=== PATIENT | female | born 1950 | race Caucasian/White ===

== ENCOUNTER 2020-03-05 01:34 | Outpatient (CLI) | payer MEDICARE, OTHER, SELFPAY ==
[2020-03-05 19:05] LABS: SARS-CoV-2 RNA PCR Negative
== END 2020-03-05 01:35 | disposition home or self-care (01) ==
LOC: ANHCOVIDDT 01:35
PROVIDERS: PCP Family Medicine; Visit Provider Internal Medicine Gastroenterology
DX: Z01.812 Encounter for preprocedural laboratory examination (principal); Z20.828 Contact with and (suspected) exposure to other viral communicable diseases
CPT/HCPCS: 87635; C9803; U0003

== ENCOUNTER 2020-03-07 00:40 | Day surgery (SDC) | payer MEDICARE, OTHER, SELFPAY ==
[2020-02-28 15:15] VITALS: BMI 28.9
--- NOTE | 2020-03-06 08:01 | WPDANESEPPF ---
Anes - Initial Pre Proc Eval Procedure: Operation Date: 03/07/20 08:30 Proposed Procedures p Screening Colonoscopy - Lonnie Bianchi MD Date/Time: 03/06/20 08:01 Surgeon: Lonnie Bianchi MD Pre Op Diagnosis: hx of polyps Patient Data Age: 70 Gender: F Height: 1.52 m Weight: 67.2 kg Allergies Allergy/AdvReac Type Severity Reaction Status Date / Time No Known Allergies Allergy Verified 03/07/20 07:37 Home Medications Medication Instructions Recorded Confirmed Type blood sugar diagnostic #100 each 10/09/19 10/09/19 Rx blood-glucose meter #1 each 10/09/19 10/09/19 Rx lancets 32 gauge #100 each 10/09/19 10/09/19 Rx multivit-iron 18 mg-folic acid 400 tablet PO DAILY 10/09/19 10/09/19 History mcg-calcium 500 mg-minerals tablet sertraline 50 mg tablet 50 mg PO DAILY #90 tablet 10/09/19 03/07/20 Rx metformin 500 mg tablet 1,000 mg PO BID #360 tablet 01/09/20 02/28/20 Rx glimepiride 1 mg tablet 1 mg PO QAM #90 tablet 02/13/20 Rx Patient hx anesthesia problems: none Family hx anesthesia problems: none PMFSH Past Medical History Medical History (Updated 03/06/20 @ 08:02 by Willi Begum DO) Brain aneurysm history of repair Diabetes type 2, controlled GERD (gastroesophageal reflux disease) Migraine Thalassemia Surgical History Surgical History (Updated 03/06/20 @ 08:02 by Willi Begum DO) History of hysterectomy Family History Family History (Updated 05/24/18 @ 14:17 by DOCTOR UNKNOWN) Mother Family history of lymphoma Family history of malignant neoplasm Father Carcinoma of colon Other Diabetes mellitus Hypertension Social History Social History Smoking status: Never smoker Second hand tobacco smoke exposure: No Alcohol intake: never Alcohol use details: rare Substance use: never Substance use type: does not use Living arrangements: with family Gender identity (if verbalized by the patient): Female Spiritual care concerns: No Anes - Eval Final PreProcedure Day of Procedure 03/06/20 08:01 Patient weight: overweight Heart: regular rate and rhythm Lungs: clear to auscultation and normal air movement Airway: Mallampati scale class III Neurological: alert and oriented Last oral intake: >/= 8 hours ASA classification: III Emergent: no Anesthetic plan: proceed Anesthesia type and monitoring: general GIVS and standard monitoring Informed Consent: The patient's anesthetic plan and its attendant risks and benefits were discussed with the patient/family/POA. Questions were solicited and answers provided to the satisfaction of the patient/family/POA.
[2020-03-07 07:38] VITALS: BP 149/81; PULSE 117; RESP 20; TEMP 37.1; O2SAT 97
--- NOTE | 2020-03-07 07:52 | PM.HPGS ---
History of Present Illness History of Present Illness Consent: Risks, benefits, and alternatives have been discussed and questions answered. Patient agrees to proceed with procedure. Chief complaint: hx of polyps Narrative: Rosa Orantes is a 70 year old White female who underwent partial transverse colon resection for a large dysplastic polyp in 2016. Patient a small adenoma removed in 2017 who returns now for follow-up exam. COUNTS INCLUDE 234 BEDS AT THE [facility] Past Medical History Medical History Brain aneurysm history of repair Diabetes type 2, controlled GERD (gastroesophageal reflux disease) Migraine Thalassemia Surgical History Surgical History History of hysterectomy Family History Family History (Updated 05/24/18 @ 14:17 by DOCTOR UNKNOWN) Mother Family history of lymphoma Family history of malignant neoplasm Father Carcinoma of colon Other Diabetes mellitus Hypertension Social History Social History Smoking status: Never smoker Second hand tobacco smoke exposure: No Alcohol intake: never Alcohol use details: rare Substance use: never Substance use type: does not use Living arrangements: with family Gender identity (if verbalized by the patient): Female Spiritual care concerns: No Meds Home Medications and Allergies Home Medications Medication Instructions Recorded Confirmed Type blood sugar diagnostic #100 each 10/09/19 10/09/19 Rx blood-glucose meter #1 each 10/09/19 10/09/19 Rx lancets 32 gauge #100 each 10/09/19 10/09/19 Rx multivit-iron 18 mg-folic acid 400 tablet PO DAILY 10/09/19 10/09/19 History mcg-calcium 500 mg-minerals tablet sertraline 50 mg tablet 50 mg PO DAILY #90 tablet 10/09/19 03/07/20 Rx metformin 500 mg tablet 1,000 mg PO BID #360 tablet 01/09/20 02/28/20 Rx glimepiride 1 mg tablet 1 mg PO QAM #90 tablet 02/13/20 Rx Allergies Allergy/AdvReac Type Severity Reaction Status Date / Time No Known Allergies Allergy Verified 03/07/20 07:37 Vital Signs Vital Signs - 24 hr 03/07/20 07:38 Temperature 37.1 C Pulse Rate 117 H Respiratory Rate 20 Blood Pressure 149/81 H Pulse Oximetry 97 Exam Const: Orientation/consciousness: patient oriented x3 Resp: Auscultation: clear to auscultation bilaterally Cardio: Rate: regular rate Rhythm: regular rhythm Heart sounds: no murmurs GI: GI Palp: Yes Soft to palpation, No Tenderness to palpation present (GI), Yes No hepatosplenomegaly present and No Palpable mass present Auscultation: normal bowel sounds Neuro: General: patient oriented x3 and no focal motor deficits Extrem: General: no pedal edema Assessment and Plan Additional Plan Screening colonoscopy secondary history of colonic polyps
[2020-03-07] MEDS: LACTATED RINGERS 1,000 ML 150 ML IV CONT (08:03)
[2020-03-07 08:06] LABS: Glucose Point of Care 128 (65-105)
[2020-03-07 08:55] VITALS: BP 111/59; PULSE 93; RESP 24; O2SAT 95
[2020-03-07 09:05] VITALS: BP 114/66; PULSE 91; RESP 23; O2SAT 95
[2020-03-07 09:15] VITALS: BP 118/66; PULSE 92; RESP 20; O2SAT 95
== END 2020-03-07 09:40 | disposition home or self-care (01) ==
PROVIDERS: PCP Family Medicine; Visit Provider Internal Medicine Gastroenterology
PROC: 0DJD8ZZ Inspection of Lower Intestinal Tract, Via Natural or Artificial Opening Endoscopic (ICD-10-PCS; CPT 45378; principal; 2020-03-07 08:30)
DX: Z12.11 Encounter for screening for malignant neoplasm of colon (principal); K63.5 Polyp of colon; Z98.0 Intestinal bypass and anastomosis status; Z90.49 Acquired absence of other specified parts of digestive tract; E11.9 Type 2 diabetes mellitus without complications; K21.9 Gastro-esophageal reflux disease without esophagitis; Z79.84 Long term (current) use of oral hypoglycemic drugs
CPT/HCPCS: 45380; 88305; J2704; J7120

== ENCOUNTER 2022-01-13 09:57 | Outpatient (CLI) | payer MEDICARE, OTHER, SELFPAY ==
--- NOTE | ~2022-01-13 | DEXA_ITS ---
Bone Density Report Name: DILMA HERNANDEZ Age: 71 Sex: Female Ethnicity: White Date of : 1950 Indication: postmenopausal; screening for osteoporosis; height loss; hysterectomy; Referring Provider: DILCIA TREVIÑO Study: Bone densitometry was performed. Exam Date: January 13, 2022 Accession number: [id number] Bone Density: Region BMD T-score Z-score Classification AP Spine(L1-L4) 0.938 -1.0 1.1 Normal Femoral Neck (Left) 0.557 -2.6 -0.8 Osteoporosis Total Hip (Left) 0.786 -1.3 0.2 Osteopenia Femoral Neck (Right) 0.627 -2.0 -0.2 Osteopenia Total Hip (Right) 0.839 -0.8 0.7 Normal Total Hip Mean 0.813 -1.1 0.5 Osteopenia World Health Organization criteria for BMD impression classify patients as: Normal (T-score at or above -1.0), Osteopenia (T-score between -1.0 and -2.5), or Osteoporosis (T-score at or below -2.5). 10-year Fracture Risk: FRAX not reported because: Some T-score for Spine Total or Hip Total or Femoral Neck at or below -2.5 Clinical Information Provided by Patient: Has used the following medications: Calcium Has the following medical conditions: Hysterectomy Patient maximum height was 61 No regular weight bearing exercise Drinks caffeinated beverages Onset of menses at age 14 Number of children 2 Impression: The patient has osteoporosis, based on the Left Femoral Neck T-score. Discussion: INCREASED RISK OF FRACTURE. BONE DENSITY IS UNDESIRABLY LOW AT ONE OR MORE SKELETAL SITES, CONSISTENT WITH POSTMENOPAUSAL OSTEOPOROSIS. This patient's lowest T-score meets the World Health Organization's (WHO) criteria for osteoporosis at one or more sites (T-score -2.5 or below). In untreated patients, the risk of osteoporotic fracture increases approximately two-fold for each 1.0 SD decrease in T-score. Low bone density is not the only risk factor for fracture; also consider factors such as patient's age, frailty or poor health, risk of falling, risk of injury, previous osteoporotic fracture, family history of osteoporosis, cigarette smoking, low body weight, etc. Not everyone with low bone mineral density has osteoporosis; osteomalacia and other metabolic bone disorders should also be considered. Patients who have osteoporosis should be evaluated for specific diseases and conditions (secondary causes) that may cause or contribute to bone loss. The [place] [employer] Endocrinologists (AACE) and National Osteoporosis Foundation (NOF) recommend pharmacologic intervention for all postmenopausal women whose T-score is in this range. The patient should follow a healthful lifestyle (good nutrition with adequate calcium and vitamin D, and appropriate weight-bearing exercise). Follow-Up: Consider a repeat BMD and Vertebral Fracture Assessment (VFA) exam in 2 years or sooner i
== END 2022-01-13 09:58 | disposition home or self-care (01) ==
LOC: ANHIMG 09:59
PROVIDERS: PCP Family Medicine; Visit Provider Physician Assistant
DX: Z78.0 Asymptomatic menopausal state (principal); M81.0 Age-related osteoporosis without current pathological fracture; M85.851 Other specified disorders of bone density and structure, right thigh
CPT/HCPCS: 77080

== ENCOUNTER 2022-10-14 12:52 | Outpatient (CLI) | payer MEDICARE, OTHER, SELFPAY ==
--- NOTE | ~2022-10-14 | XR_ITS ---
Clinical Indication: Chronic cough PA and lateral views of the chest: Comparison: 07/25/2011 Findings: There are probable small right pleural effusion. Left lung clear. Cardiomediastinal silhou ette is within normal limits. Bones and soft tissues are unremarkable. Impression: Probable small left pleural effusion and/or atelectasis. Reviewed, dictated and finalized at location . Impression: Probable small left pleural effusion and/or atelectasis.
== END 2022-10-14 12:53 | disposition home or self-care (01) ==
LOC: ANHIMG 12:57
PROVIDERS: PCP Family Medicine; Visit Provider Physician Assistant Medical
DX: R05.3 Chronic cough (principal)
CPT/HCPCS: 71046

== ENCOUNTER 2022-10-19 09:29 | Outpatient (CLI) | payer MEDICARE, OTHER, SELFPAY ==
--- NOTE | ~2022-10-19 | XR_ITS ---
EXAMINATION: XR chest 2V w RT decubitus INDICATION: Pleural effusion not elsewhere classified TECHNIQUE: PA, lateral, and right decubitus images of the chest are obtained. COMPARISON: 10/14/2022 FINDINGS: The lungs are free of acute opacities. There is chronic mild atelectasis of the right lung base. No pleural effusion or pneumothorax. The cardiomediastinal silhouette is normal. The visualized bones and soft tissues are unremarkable. Mild thoracic spondylosis is noted. IMPRESSION: 1. Chronic mild atelectasis of the right lung base. Reviewed, dictated and finalized at location A.
== END 2022-10-19 09:30 | disposition home or self-care (01) ==
LOC: ANHIMG 09:34
PROVIDERS: PCP Family Medicine; Visit Provider Physician Assistant Medical
DX: J90 Pleural effusion, not elsewhere classified (principal); J98.11 Atelectasis
CPT/HCPCS: 71047

== ENCOUNTER 2022-11-23 09:39 | Outpatient (CLI) | payer MEDICARE, OTHER, SELFPAY ==
--- NOTE | ~2022-11-23 | XR_ITS ---
Clinical Indication: Cough PA and lateral views of the chest: Comparison: 10/19/2022 Findings: There is stable minimal haziness at the right costophrenic angle region. Left lung clear. Cardiomediastinal silhouette is within normal limits. Bones and soft tissues are unremarkable. Impression: Stable haziness of the right costophrenic angle region. This probably represents chronic scarring or atelectasis. Reviewed, dictated and finalized at location . Impression: Stable haziness of the right costophrenic angle region. This probably represent s chronic scarring or atelectasis.
== END 2022-11-23 09:40 | disposition home or self-care (01) ==
PROVIDERS: PCP Family Medicine; Visit Provider Physician Assistant Medical
DX: R05.3 Chronic cough (principal); R91.8 Other nonspecific abnormal finding of lung field
CPT/HCPCS: 71046

== ENCOUNTER 2024-03-29 16:36 | Outpatient (CLI) | payer MEDICARE, OTHER, SELFPAY ==
[2024-03-29 18:33] LABS: Influenza A QL RT-PCR Negative (Negative); Influenza B QL RT-PCR Negative (Negative); RSV RNA, RT-PCR Negative (Negative); SARS-CoV-2 RNA PCR Negative (Negative)
== END 2024-03-29 16:37 | disposition home or self-care (01) ==
LOC: ANHLAB 16:39
PROVIDERS: PCP Family Medicine; Visit Provider Family Medicine
DX: J06.9 Acute upper respiratory infection, unspecified (principal); Z20.822 Contact with and (suspected) exposure to COVID-19
CPT/HCPCS: 87637

== ENCOUNTER 2024-07-24 12:48 | Emergency (ER) | payer MEDICARE, OTHER, SELFPAY ==
--- NOTE | ~2024-07-24 | XR_ITS ---
XR chest 2V Ordering provider: Carol Dahl APRN History: 74 years Female with . cough, wheezing X 3 DAYS . Comparison: November 23, 2022 FINDINGS: MEDIASTINUM: The cardiac silhouette is not enlarged. LUNGS: No infiltrates, effusions or pneumothorax. Blunting of the right costophrenic angle. OTHER: No free air under the diaphragm. Degenerative changes of the spine. IMPRESSION: No acute cardiopulmonary pathology. Reviewed, dictated and finalized at location A.
[2024-07-24 12:58] VITALS: BP 129/67; PULSE 100; RESP 20; TEMP 37; O2SAT 98
--- NOTE | 2024-07-24 13:04 | ED.URI ---
HPI - URI/Sore Throat General Chief Complaint: Upper Respiratory Infection Stated Complaint: cough,chest hurts,weak, winded Time Seen by Provider: 07/24/24 12:53 Source: patient Mode of arrival: ambulatory Limitations: no limitations History of Present Illness HPI Narrative: Patient is a 74-year-old female presents with 3 days deep, chest congestion and intermittent fever. Denies any sore throat, ear pain, chills, nausea vomiting, diarrhea. Has taken [id number] medicine with no relief Related Data Allergies Allergy/AdvReac Type Severity Reaction Status Date / Time No Known Allergies Allergy Verified 02/14/24 08:34 Review of Systems Review of Systems: All systems reviewed & are unremarkable except as noted in HPI and below Constitutional: Constitutional: Denies chills, Denies fatigue, Denies fever(s), Denies headache(s), Denies malaise and Denies weakness Eyes: Eyes: Denies blurry vision, Denies itchy eyes and Denies loss of vision ENT: Denies otalgia, Denies headache(s), Reports nasal congestion, Denies sinus pain and Denies sore throat Cardiovascular: Cardiovascular: Denies chest pain, Denies irregular heart rhythm and Denies dyspnea Respiratory: Respiratory: Reports cough and Denies dyspnea Gastrointestinal: Gastrointestinal: Denies abdominal pain, Denies diarrhea, Denies nausea and Denies vomiting Musculoskeletal: Musculoskeletal: Denies back pain, Denies myalgias and Denies arthralgias Integumentary/Breasts: Skin/Breast: Denies pruritus and Denies rash Neurologic: Denies headache(s), Denies loss of vision and Denies weakness Psychiatric: Psychiatric: Reports no additional psychiatric complaints Endocrine: Endocrine: Denies fatigue Allergic/Immunologic: Allergic/Immunologic: Denies itchy eyes PMFSH Past Medical History Medical History Diabetes type 2, controlled Thalassemia GERD (gastroesophageal reflux disease) Brain aneurysm history of repair Migraine Surgical History Surgical History History of hysterectomy Family History Family History Mother Family history of lymphoma Family history of malignant neoplasm Father Carcinoma of colon Other Diabetes mellitus Hypertension Social History Social History Smoking status: Never smoker Second hand tobacco smoke exposure: No Alcohol intake: never Alcohol use details: rare Substance use: never Substance use type: does not use Lack of Transportation: No Lack of Food: Never True Current Housing: I Have Housing Concerned About Future Housing: No Difficulty Paying Gas/Electric Bills: No Difficulty Paying for Meds: No Currently Unemployed: No Education: High School Diploma/GED Difficulty w/ Childcare or Family Care: No Living arrangements: with family Gender identity (if verbalized by the patient): Female Sexual Orientation (if Verbalized by the Patient): Straight or Heterosexual Spiritual care concerns: No Agree to blood products: Yes Comments At time of signature, agree with nursing past medical, surgical, social and family history. There is no relevant family history pertinent to the presenting complaint. Exam Const: General: cooperative, healthy appearing, comfortable, no acute distress and well nourished Nutritional Appearance: well nourished Orientation/consciousness: patient oriented x3 Limitations: no limitations HENMT: Head: normal to inspection, normocephalic and atraumatic Ears: hearing grossly normal bilaterally, external ears normal, TM's normal bilaterally, EAC's normal and no periauricular adenopathy Face/Nose/Sinus: Normal external nose present, Abnormal mucous membranes and turbinates present erythematous bilateral and diffuse, normal facial exam, sinuses nontender and face symmetric Face and sinus: normal facial exam, sinuses nontender and face symmetric Mouth: Yes Normal oral and palatal mucosa present, Yes lip normal, Yes tongue normal, Yes Normal salivary glands and ducts present, Yes oropharynx normal and Yes moist mucous membranes Teeth and gingiva: dentition normal Throat: posterior oropharynx normal, tonsils normal and uvula midline Eyes: General: appearance normal, both eyes and all related structures Alignment and Position: alignment normal and position normal Periorbital: periorbital findings normal Eyelids: eyelids normal Pupils: Equal, round and reactive pupils present Neck: Neck: normal visual inspection, full ROM, no lymphadenopathy and supple Chest: Chest palpation & inspection: normal inspection of the chest and normal palpation of entire chest wall Resp: Effort & Inspection: normal respiratory effort, able to speak in complete sentences and Actively coughing dry Auscultation: clear to auscultation bilaterally, no crackles, no rales, no rhonchi and no wheezes Cardio: Rate: regular rate Rhythm: regular rhythm Heart sounds: S1 normal heart sound present and S2 normal heart sound present GI: Inspection: normal to inspection Skin: General skin exam: normal color and no rashes or lesions noted Neuro: General: patient oriented x3 and moves all extremities Cranial nerves: Yes Equal, round and reactive pupils present Speech: normal speech Gait exam (Neuro): Normal gait present Extrem: General: normal to inspection, full ROM and no edema Psych: Appearance: grossly normal and well kempt Mental Status: mental status grossly normal Speech and movement: Normal speech and movement present Affect: normal affect Attitude: cooperative Thought process: Normal thought process present Course Course Emergency Course: Discharge instructions reviewed with patient, as well as provided in writing per nursing staff. The instructions also include specific and strict return/GO TO THE ER as well as f/u information. All questions have been answered, and the patient deny any further questions with discharge and discharge plan. Portions of this record may have been created with voice recognition software Level of Care: Express Care Visit Vital Signs Vital signs: Vital Signs Temperature 37.0 C 07/24/24 12:58 Pulse Rate 100 07/24/24 12:58 Respiratory Rate 20 07/24/24 12:58 Blood Pressure 129/67 07/24/24 12:58 Pulse Oximetry 98 07/24/24 12:58 Oxygen Delivery Room Air 07/24/24 12:58 Temperature 37.0 C 07/24/24 12:58 Pulse Rate 100 07/24/24 12:58 Respiratory Rate 20 07/24/24 12:58 Blood Pressure 129/67 07/24/24 12:58 Pulse Oximetry 98 07/24/24 12:58 Oxygen Delivery Room Air 07/24/24 12:58 Reviewed MDM - URI/Sore Throat MDM Narrative Medical decision making narrative: Patient has PCP appointment in 3 days. Pt well hydrated appearing, in no respiratory distress, hemodynamically stable. Recommend supportive care. The patient is stable at time of discharge the clinical impression was discussed and the patient was given the opportunity to ask questions, which were addressed as completely as possible given the information available at present. Anticipatory guidance and return to care precautions were discussed and the importance of primary care follow-up was stressed and encouraged. The patient voiced understanding of the plan, indications to return, and the need for follow-up. Differential diagnosis considered: Bronchitis, Yost virus, strep pharyngitis, allergic rhinitis, upper respiratory tract infection, sinusitis, rhinosinusitis, nasopharyngitis. viral pharyngitis, otitis media, otitis externa, otitis effusion, foreign body, cerumen impaction, viral syndrome, and influenza.? Exam findings show no acute concerns or changes; patient is non-toxic appearing and is in no distress.? Patient is appropriate for outpatient treatment and follow-up.? Medical Records Attestation: I reviewed the patient's medical records. Lab Data Attestation: I reviewed the patient's lab results. Labs: Lab Results 07/24/24 Range/Units 13:22 POC Influenza A Ag Negative (Negative) POC Influenza B Ag Negative (Negative) POC SARS CoV-2 Ag Negative (Negative) Imaging Data Radiologist's impression: XR chest 2V Ordering provider: Carol Dahl APRN History: 74 years Female with . cough, wheezing X 3 DAYS . Comparison: November 23, 2022 FINDINGS: MEDIASTINUM: The cardiac silhouette is not enlarged. LUNGS: No infiltrates, effusions or pneumothorax. Blunting of the right costophrenic angle. OTHER: No free air under the diaphragm. Degenerative changes of the spine. IMPRESSION: No acute cardiopulmonary pathology. Discharge Plan Discharge Clinical Impression: Acute viral bronchitis Patient Disposition: Home, Self-Care Condition: Stable Instructions: Acute Bronchitis (ED) Additional Instructions: Chest x-ray showed no signs of pneumonia Your Covid and flu are both negative Use inhaler with spacer. Use Tessalon Perles as needed for cough. Your symptoms are likely due to a viral illness, which is not treated with antibiotics. Viral symptoms can be present for up to a few weeks. -For pain/fever, you may take: Tylenol 650-1000mg by mouth every 4-6 hours. Do not exceed 4000mg in 24 hours. Advil (Ibuprofen) 600 mg by mouth every 6 hours. Do not exceed 2400mg in 24 hours. 8 AM: Tylenol 11 AM: Ibuprofen 2 PM: Tylenol 5 PM: Ibuprofen 8 PM: Tylenol 11 PM: Ibuprofen 2 AM: Tylenol 5 AM: Ibuprofen -Antihistamine medication such as Benadryl/Zyrtec at night and Claritin/Loreta during the day can help improve symptoms. -Use Flonase twice a day for 5 days then daily to help reduce the inflammation and dry up your sinuses. -You can also use Sudafed behind the pharmacy counter(12 or 24 hour). Be sure to drink plenty of water with these medications at least 8 ounces with every dose and it is important to drink 8 to 10 glasses of water per day. Water is a natural decongestant -Eat and drink things that are easy to swallow, like tea or soup, or popsicles. -Oral rinses such as: Salt water gargles and/or may use topical anesthetic (eg. Chloraseptic spray) or lozenges to relieve dryness or throat pain). -Frequent hand washing or hand inspector packer is one of the best ways to prevent spread of infection. -Using a vaporizer or humidifier at night will also help thin secretions and help with coughing up phlegm. Call your Primary Care Doctor and make a follow-up appointment in 3 days. If your cough worsens, you develop a fever greater than 103, you develop shaking chills, a fast heartbeat, trouble breathing and/or feel you are are breathing much faster than usual, call your Primary Care Doctor or go to the ER. Patient Language: Luxembourger Prescriptions: New benzonatate 100 mg capsule 100 mg PO BID PRN (Reason: cough) Qty: 14 0RF albuterol sulfate 90 mcg/actuation HFA aerosol inhaler 2 puff inhalation QID PRN (Reason: shortness of breath or wheezing) Qty: 6.7 0RF (DME) Aerochamber MV Spacer See Rx Instructions .Route Qty: 1 0RF Rx Instructions: As directed fluticasone propionate [Flonase Allergy Relief] 50 mcg/actuation spray,suspension 1 spray intranasal DAILY Qty: 16 0RF Rx Instructions: administer into each nostril No Action benzonatate 100 mg capsule 100 mg PO TID PRN (Reason: cough) Qty: 30 0RF (DME) blood-glucose meter [Blood Glucose Monitoring] Kit See Rx Instructions .ROUTE .MEDSUPPLY Qty: 1 1RF Rx Instructions: Use to check blood sugar dialy while fasting (DME) lancets 32 gauge misc See Rx Instructions .ROUTE .MEDSUPPLY Qty: 100 3RF Rx Instructions: Use to check blood sugar dialy while fasting (DME) Blood Glucose Test Strip See Rx Instructions .ROUTE .MEDSUPPLY Qty: 100 11RF Rx Instructions: Use to check blood sugar daily while fasting metformin 500 mg tablet extended release 24 hr 500 mg PO BID Qty: 180 3RF ibandronate 150 mg tablet 150 mg PO MONTHLY Qty: 6 1RF sertraline 50 mg tablet See Rx Instructions .ROUTE .COMPLEX Qty: 90 3RF Dose Instruction: Take 1 tablet by mouth once daily Rx Instructions: Take 1 tablet by mouth once daily glimepiride 2 mg tablet 2 mg PO QAM Qty: 180 3RF Rx Instructions: administer with breakfast Follow-up/Referrals: Deepali Rivera MD [Primary Care Provider] - 3 Days Time of Disposition: 13:51
[2024-07-24 13:24] LABS: EDCOVIDSCREEN Negative (Negative)
[2024-07-24 13:25] LABS: EDINFLUASCREEN Negative (Negative); EDINFLUBSCREEN Negative (Negative)
== END 2024-07-24 14:02 | disposition home or self-care (01) ==
PROVIDERS: Emergency Provider Nurse Practitioner Family; PCP Family Medicine
DX: J20.9 Acute bronchitis, unspecified (principal); Z20.822 Contact with and (suspected) exposure to COVID-19; E11.9 Type 2 diabetes mellitus without complications; K21.9 Gastro-esophageal reflux disease without esophagitis; D56.9 Thalassemia, unspecified
CPT/HCPCS: 71046; 87426; 87804; 99213; G0463

== ENCOUNTER 2024-09-06 08:58 | Outpatient (CLI) | payer MEDICARE, OTHER, SELFPAY ==
--- NOTE | ~2024-09-06 | DEXA_ITS ---
Bone Density Report Name: DILMA HERNANDEZ Age: 74 Sex: Female Ethnicity: White Date of : 1950 Indication: osteopenia; height loss; hysterectomy; Referring Provider: VITO ABDUL Study: Bone densitometry was performed. Exam Date: September 06, 2024 Accession number: [id number] Bone Density: Region BMD T-score Z-score Classification AP Spine(L1-L4) 0.972 -0.7 1.6 Normal Femoral Neck (Left) 0.573 -2.5 -0.5 Osteoporosis Total Hip (Left) 0.824 -1.0 0.7 Normal Femoral Neck (Right) 0.673 -1.6 0.4 Osteopenia Total Hip (Right) 0.891 -0.4 1.2 Normal Total Hip Mean 0.857 -0.7 1.0 Normal World Health Organization criteria for BMD impression classify patients as: Normal (T-score at or above -1.0), Osteopenia (T-score between -1.0 and -2.5), or Osteoporosis (T-score at or below -2.5). 10-year Fracture Risk: FRAX not reported because: Some T-score for Spine Total or Hip Total or Femoral Neck at or below -2.5 Previous Exams: Region Exam Age BMD T-score BMD Change BMD Change Date g/cm2 vs Baseline vs Previous AP Spine (L1-L4) 09/06/2024 74 0.972 -0.7 -0.004 (-0.4%) 0.035 (3.7%)* 01/13/2022 71 0.938 -1.0 -0.038 (-3.9%) -0.058 (-5.8%) 09/14/2016 66 0.996 -0.5 0.020 (2.0%)# 0.020 (2.0%)# 11/30/2011 61 0.976 -0.6 Total Hip(Left) 09/06/2024 74 0.824 -1.0 -0.044 (-5.0%) 0.038 (4.8%)* 01/13/2022 71 0.786 -1.3 -0.082 (-9.4%) -0.005 (-0.6%) 09/14/2016 66 0.791 -1.2 -0.077 (-8.9%) -0.077 (-8.9%) 11/30/2011 61 0.868 -0.6 Total Hip(Right) 09/06/2024 74 0.891 -0.4 -0.047 (-5.0%) 0.051 (6.1%)* 01/13/2022 71 0.839 -0.8 -0.098 (-10.5% 0.007 (0.9%) 09/14/2016 66 0.832 -0.9 -0.105 (-11.2% -0.105 (-11.2% 11/30/2011 61 0.937 0.0 *Denotes significance at 95% confidence level, LSC for AP Spine = 0.022 g/cm2, LSC for Total Hip = 0.027 g/cm2 # Denotes dissimilar scan types or analysis methods Clinical Information Provided by Patient: Has used the following medications: Darlin (i.e. ibandronate) Has the following medical conditions: Hysterectomy Patient maximum height was 61.0 No regular weight bearing exercise Drinks caffeinated beverages Onset of menses at age 14 Number of children 2 Impression: The patient has osteoporosis, based on the Left Femoral Neck T-score. No significant bone loss was observed. Discussion: INCREASED RISK OF FRACTURE. BONE DENSITY IS UNDESIRABLY LOW AT ONE OR MORE SKELETAL SITES, CONSISTENT WITH POSTMENOPAUSAL OSTEOPOROSIS. This patient's lowest T-score meets the World Health Organization's (WHO) criteria for osteoporosis at one or more sites (T-score -2.5 or below). In untreated patients, the risk of osteoporotic fracture increases approximately two-fold for each 1.0 SD decrease in T-score. Low bone density is not the only risk factor for fracture; also consider factors such as patient's age, frailty or poor health, risk of falling, risk of injury, previous osteoporotic fracture, family history of osteoporosis, cigarette smoking, low body weight, etc. Not everyone with low bone mineral density has osteoporosis; osteomalacia and other metabolic bone disorders should also be considered. Patients who have osteoporosis should be evaluated for specific diseases and conditions (secondary causes) that may cause or contribute to bone loss. The [place] Association of Clinical Endocrinologists (AACE) and National Osteoporosis Foundation (NOF) recommend pharmacologic intervention for all postmenopausal women whose T-score is in this range. The patient should follow a healthful lifestyle (good nutrition with adequate calcium and vitamin D, and appropriate weight-bearing exercise). Follow-Up: Consider a repeat BMD and Vertebral Fracture Assessment (VFA) exam in 2 years or sooner if medically necessary, to reassess this patient's status. Reported by: GURDEEP on 09/06/2024 9:30:00 AM. Reviewed, dictated and finalized at location AVanessa BERRY
--- OUTSIDE RECORDS SUMMARY | 2024-09-06 09:24 | XMS_ITS | Clinical Summary ---
Author Organization [facility] al Address [address] [place] [address] Care Team Providers Care Nailhead Puncher Name Role Phone Deepali Rivera MD Primary Care Provider [phone] Active Problems Problem Noted Date Diagnosed Date Abnormal findings on diagnostic imaging of fide t 08/17/2013 Family History Medical History Relation Name Comments Brain cancer Mother Family history of malignant neoplasm of brain - (Added by TW Conv) Kidney disease Mother Family histor y of kidney disease - (Added by TW Conv) Lymphoma Mother Family history of lymphoma - (Added by TW Conv) Relation Name Status Comments Mother Social History Tobacco Use Types Packs/Day Years Used Date Smoking Tobacco: Never Personal Safety Answer Date Recorded Getting School Help Needed Not on file 07/03 Comments Unknown Sex and Gender Information Value Date Recorded Sex Assigned at Not on file Legal Sex Female 3:30 AM DRY CANS BACK TENDER Gender Identity Not on file Sexual Orientation Not on file Obstetrics History Plan of Treatment Health Maintenance Due Date Last Done Comments Colon Cancer Screening-Colonoscopy 1950 Depression Screening 1950 Fall Risk Assessment 1950 Hepatitis C Screening 1950 Osteoporosis Screening-Bone Density Scan 1950 Hepatitis B Screening 02/04/1970 Pneumococcal vaccine 65+ (1 of 1 - PCV) 02/04/2002 Zoster Vaccine (1 of 2) 02/04/2002 Well Visit 65+ 02/04/2017 DTaP/Tdap/Td Vaccine (2 - Td or Tdap) 08/08/2023 08/07/2013, 03/12/2004 Influenza Vaccine (#1) 2024 02/15/2019 Breast Cancer Screening-Mammogram 10/24/2024 10/25/2023, 10/22/2022, 09/03/2021, Additional history exists Procedures Procedure Name Priority Date/Time Associated Diagnosis Comments SCREENING MAMMOGRAM BILATERAL W LUIS Schedule Routine, Read Routine (OP Routine) 10/25/2023 9:02 AM CDT Screening mammogram, encounter for from Last 3 Months or Most Recently Relevant to Health Maintenance Results * Screening Mammogram Bilateral W Luis (10/25/2023 9:02 AM CDT) Anatomical Region Laterality Modality Breast Bilateral Mammography Narrative 10/26/2023 2:34 PM CDT Mammogram Technique: Bilateral Digital Breast Tomosynthesis, Bilateral C-view 2D Screening mammogram. Views obtained: bilateral craniocaudal and bilateral mediolateral oblique. Computer Aided Detection was performed. Mammogram Findings: The present examination has been compared to prior imaging studies performed at [facility] on 08/06/2020, 09/03/2021 and 10/22/2022. There are scattered areas of fibroglandular density. There is no suspicious abnormality in either breast. Impression: There is no mammographic evidence of malignancy. Annual screening mammography is recommended. OVERALL FINAL ASSESSMENT: BI-RADS CATEGORY 1: Negative. Procedure Note Herman Bruno MD - 10/26/2023 Mammogram Technique: Bilateral Digital Breast Tomosynthesis, Bilateral C-view 2D Screening mammogram. Views obtained: bilateral craniocaudal and bilateral mediolateral oblique. Computer Aided Detection was performed. Mammogram Findings: The present examination has been compared to prior imaging studies performed at [facility] on 08/06/2020, 09/03/2021 and 10/22/2022. There are scattered areas of fibroglandular density. There is no suspicious abnormality in either breast. Impression: There is no mammographic evidence of malignancy. Annual screening mammography is recommended. OVERALL FINAL ASSESSMENT: BI-RADS CATEGORY 1: Negative. us Self Screening Mammogram IMG MAMMO PROCEDURES Fi nal Result from Last 3 Months or Most Recently Relevant to Health Maintenance Insurance MEDICARE [facility] MEDICARE [facility] [place] [address] MEDICARE [facility] Care Teams Nailhead Puncher Relationship Specialty Start Date End Date Deepali Rivera MD PCP - General Family Medicine 08/18/23
--- OUTSIDE RECORDS SUMMARY | 2024-09-06 09:24 | XMS_ITS | Encounter Summary ---
Author Organization [facility] Health Address [address] [place] [address] Care Team Providers Care Principal Process Engineer Name Role Phone Artur Nuñez MD Primary Care Provider [phone] Encounter Details Date Type Department Care Team (Late st Contact Info) Description 07/12/2018 Lab Requisition [facility] [address] [facility] [place] [address] Zainab Obando MD [address] [facility] [address] [place] [address] Social History Tobacco Use Types Packs/Day Years Used Date Smoking Tobacco: Never Alcohol Use Standard Drinks/Week Comments No 0 (1 standard drink = 0.6 oz pur e alcohol) Comments Unknown Sex and Gender Information Value Date Recorded Sex Assigned at Not on file Legal Sex Female 6:46 PM SEALANT MIXER Gender Identity Not on file Sexual Orientation Not on file documented as of this encounter Plan of Treatment Not on file documented as of this encounter Procedures Procedure Name Priority Date/Time Associated Diagnosis Comments DERMATOPATH TECHNICAL REPORT Routine 07/11/2018 12:00 AM SEALANT MIXER documented in this encounter Results * DERMATOPATH TECHNICAL REPORT (07/11/2018 12:00 AM SEALANT MIXER) Case Report Dermatopathology Report Case: [id number] Authorizing Provider: Zainab Obando MD Collected: 07/11/2018 12:00 AM Pathologist: Charles Gaona MD Received: 07/12/2018 06:09 AM Specimen: Skin, right back 2:21 PM SEALANT MIXER DERMATOPATHOLOGY LABORATORY Clinical History Blue macule, angioma, foreign body nevus, rule out atypical nevus. 2:21 PM [facility] DERMATOPATHOLOGY LABORATORY Gross Description Specimen A: Received is one formalin filled container labeled with the patient's name and designated right back. The specimen consists of a punch measuring [id number]. Jar 0. [facility] Dermatopathology Laboratory performed the technical component only. 2:21 PM [facility] DERMATOPATHOLOGY LABORATORY Embedded Images 2:21 PM [facility] DERMATOPATHOLOGY LABORATORY DISCLAIMER An external and internal positive and negative controls are appropriate for the histochemical, immunohistochemical and immunofluorescence stain(s) in this case (if any), except where stated explicitly. The performance characteristics of the stain(s) cited in this report were developed and its performance characteristic determined by the Dermatopathology Laboratory at [facility], directed by Dr. Jennifer Gaona. These tests need not be, and therefore are not, approved by the [place] Food and Drug Administration. The tests are used for clinical purposes. 2:21 PM [facility] DERMATOPATHOLOGY LABORATORY Pathology/Cytolog y TISSUE SPECIMEN FROM SKIN / Unknown 07/11/2018 07/12/2018 6:09 AM SEALANT MIXER Zainab Obando MD LAB - PATHOLOGY/CYTOLOGY ORD ERABLES Final Result DERMATOPATHOLOGY LABORATORY [facility] - Department of Dermatology [address] [place] [address] 5th Floor Lab [address] [phone] documented in this encounter Visit Diagnoses Not on filedocumented in this encounter Care Teams Principal Process Engineer Relationship Specialty Start Date End Date Artur Nuñez MD [address] [place] [address] PCP - General 01/31/10 documented as of this encounter
--- OUTSIDE RECORDS SUMMARY | 2024-09-06 09:24 | XMS_ITS | Clinical Summary ---
Author Organization [facility] Address [address] [place] [address] Care Team Providers Care Automobile Accessories Salesperson Name Role Phone Artur Nuñez MD Primary Care Provider [phone] Source Comments [facility] [email or web address],non-owned Affiliates and Associated Physician Practices is amultiple site organization consisting of ambulatory clinics and hospital sitesin [place], [place], [place] and [place]. This disclosure is being madepursuant to the Care Everywhere program and may not contain all information available regarding this patient. 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 Gender Identity Not on file Sexual Orientation Not on file Last Filed Vital Signs Vital Sign Reading Time Taken Comments Blood Pressure 133/79 11/17/2012 11:19 AM CDT Pulse 100 11/17/2012 11:19 AM CDT Temperature - - Respiratory Rate - - Oxygen Saturation - - Inhaled Oxygen Concentration - - Weight 68 kg (150 lb) 11/17/2012 11:19 AM CDT Height - - Body Mass Index - - Plan of Treatment Health Maintenance Due Date Last Done Comments BONE DENSITY TESTING 1950 COLOGUARD (AGES 45-75) - COL ON CA SCREENING 1950 COLON MONITORING 1950 COLONOSCOPY - COLON CA SCREENING 1952 CT COLONOGRAPHY - COLON CA SCREENING 1950 Colorectal Cancer Screening 1950 FIT - COLON CA SCREENING 1950 FLEX SIG - COLON CA SCREENING 1950 LIPID TESTING 1950 MAMMOGRAM 1950 HEPATITIS C SCREENING 01/31/1970 DTAP/TDAP/TD VACCINES (1 - Tdap) 02/04/1971 PNEUMOCOCCAL VACCINE 50+ (1 of 1 - PCV) 02/04/2002 ZOSTER VACCINE (1 of 2) 02/04/2002 COVID-19 VACCINE (1 - 2023-2 5 season) 2024 DEPRESSION SCREENING 05/10/2024 INFLUENZA VACCINE (Season Ended) 2025 Respiratory Syncytial Virus (RSV) Vaccine Pt: or over 60 yrs (1 - 1-dose 75+ series) 02/04/2027 HEPATITIS B VACCINE Aged Out No longe r eligible based on patient's age to complete this topic HIB VACCINE Aged Out No longer eligi ble based on patient's age to complete this topic HPV VACCINE Aged Out No longer eligi ble based on patient's age to complete this topic MENINGOCOCCAL (Group B) VACC INE SHARED DECISION-MAKING Aged Out No longer eligibl e based on patient's age to complete this topic MENINGOCOCCAL GROUPS A/C/Y/W VACCINE Aged Out No longer eligible b ased on patient's age to complete this [place] [address] MEDICARE [facility] Care Teams Automobile Accessories Salesperson Relationship Specialty Start Date End Date Artur Nuñez MD [address] [place] [address] PCP - General 01/31/10
--- OUTSIDE RECORDS SUMMARY | 2024-09-06 09:24 | XMS_ITS | Encounter Summary ---
Author Organization [facility] Address [address] [place] [address] Care Team Providers Care Group Counselor Name Role Phone Artur Nuñez MD Primary Care Provider [phone] Encounter Details Date Type Department Care Team (Late st Contact Info) Description 12/29/2019 Lab Requisition [facility] DermPath Lab [address] [facility] [place] [address] Zainab Obando MD [address] [facility] [address] [place] [address] Social History Tobacco Use Types Packs/Day Years Used Date Smoking Tobacco: Never Alcohol Use Standard Drinks/Week Comments No 0 (1 standard drink = 0.6 oz pur e alcohol) Comments Unknown Sex and Gender Information Value Date Recorded Sex Assigned at Not on file Legal Sex Female 6:46 PM ENGRAVINGS POLISHER Gender Identity Not on file Sexual Orientation Not on file documented as of this encounter Plan of Treatment Not on file documented as of this encounter Procedures Procedure Name Priority Date/Time Associated Diagnosis Comments DERMATOPATHOLOGY Routine 12/28/2019 12:0 0 AM CDT documented in this encounter Results * DERMATOPATHOLOGY (12/28/2019 12:00 AM CDT) Case Report Dermatopathology Report Case: [id number] Authorizing Provider: Zainab Obando MD Collected: 12/28/2019 12:00 AM Ordering Location: [facility] DermPath Lab Received: 12/29/2019 10:53 AM Pathologist: Nubia Lewis MD Specimen: Skin, left breast 0 1:45 PM CDT DERMATOPATHOLOGY LABORATORY Final Diagnosis Specimen A. SKIN, left breast: LYMPHOHISTIOCYTIC DERMAL INFLAMMATION, DERMAL FIBROSIS AND SCLEROSIS (L90.0) (see microscopic description and comment) 0 1:45 PM [facility] DERMATOPATHOLOGY LABORATORY Clinical History R/O bite/foreign body/atypical lymphoid hyperplasia. 0 1:45 PM [facility] DERMATOPATHOLOGY LABORATORY Gross Description Specimen A: Received is one formalin filled container labeled with the patient's name and designated left breast. The specimen consists of a punch measuring [id number], bisected. Jar 0. 0 1:45 PM [facility] DERMATOPATHOLOGY LABORATORY Microscopic Description Specimen A. SKIN, left breast: There is compact hyperkeratosis, atrophy, and focal mild vacuolar alteration of the basal cell layer. The papillary dermis reveals a mild superficial perivascular inflammatory infiltrate composed of lymphocytes and histiocytes. The papillary and superficial reticular dermis is sclerotic and homogeneous with focal fibrosis. Verhoeff-Van Gieson (VVG) elastic stain highlights elastic fibers in the papillary and reticular dermis in normal quantity and quality. Additional deeper sections were obtained and reviewed. COMMENT: The histologic findings of an arthropod bite are not present in this specimen. The differential diagnosis of these histologic findings includes extra-genital lichen sclerosus, superficial morphea, healing skin changes from prior biopsy and radiation dermatitis in the correct clinical settings. Priory biopsy specimen was not available for review but could be obtained at the clinician's request. Clinicopathologic correlation is recommended. 0 1:45 PM [facility] DERMATOPATHOLOGY LABORATORY Disclaimer An external and internal positive and negative controls are appropriate for the histochemical, immunohistochemical and immunofluorescence stain(s) in this case (if any), except where stated explicitly. The performance characteristics of the stain(s) cited in this report were developed and its performance characteristic determined by the Dermatopathology Laboratory at [facility], directed by Dr. Jennifer Gaona. These tests need not be, and therefore are not, approved by the [place] Food and Drug Administration. The tests are used for clinical purposes. Billing Codes Specimen Charges Stain Charges 87455 1 88232 1 0 1:45 PM [facility] DERMATOPATHOLOGY LABORATORY Embedded Images 0 1:45 PM CDT DERMATOPATHOLOGY LABORATORY Pathology/Cytolog y TISSUE SPECIMEN FROM SKIN / Unknown 12/28/2019 12/29/2019 10:53 AM CDT Zainab Obando MD LAB - PATHOLOGY/CYTOLOGY ORD ERABLES Final Result DERMATOPATHOLOGY LABORATORY [facility] - Department of Dermatology [facility] [employer] [facility]/[address] [phone] documented in this encounter Visit Diagnoses Not on filedocumented in this encounter Care Teams Group Counselor Relationship Specialty Start Date End Date Artur Nuñez MD [address] [place] [address] PCP - General 01/31/10 documented as of this encounter
--- OUTSIDE RECORDS SUMMARY | 2024-09-06 09:24 | XMS_ITS | Referral Summary ---
Author Organization [facility] al Address [address] [place] [address] Care Team Providers Care Group Tester Name Role Phone Deepali Rivera MD Primary Care Provider [phone] Active Problems Problem Noted Date Diagnosed Date Abnormal findings on diagnostic imaging of fide t 08/17/2013 Social History Tobacco Use Types Packs/Day Years Used Date Smoking Tobacco: Never Personal Safety Answer Date Recorded Getting School Help Needed Not on file 07/03 Comments Unknown Sex and Gender Information Value Date Recorded Sex Assigned at Not on file Legal Sex Female 3:30 AM FAMILY PRACTICE MEDICAL DOCTOR Gender Identity Not on file Sexual Orientation Not on file Plan of Treatment Not on file Procedures Procedure Name Priority Date/Time Associated Diagnosis Comments SCREENING MAMMOGRAM BILATERAL W CHAVA Schedule Routine, Read Routine (OP Routine) 10/25/2023 9:02 AM CDT Screening mammogram, encounter for from Last 3 Months or Most Recently Relevant to Health Maintenance Results * Screening Mammogram Bilateral W Chava (10/25/2023 9:02 AM CDT) Anatomical Region Laterality Modality Breast Bilateral Mammography Narrative 10/26/2023 2:34 PM CDT Mammogram Technique: Bilateral Digital Breast Tomosynthesis, Bilateral C-view 2D Screening mammogram. Views obtained: bilateral craniocaudal and bilateral mediolateral oblique. Computer Aided Detection was performed. Mammogram Findings: The present examination has been compared to prior imaging studies performed at [facility] on 08/06/2020, 09/03/2021 and 10/22/2022. There [...] compared to prior imaging studies performed at [facility] on 08/06/2020, 09/03/2021 and 10/22/2022. There [...] Recently Relevant to Health Maintenance Insurance MEDICARE [facility] MEDICARE [facility] MEDICARE [facility] Care Teams Group Tester Relationship Specialty Start Date End Date Deepali Rivera MD PCP - General Family Medicine 08/18/23
--- OUTSIDE RECORDS SUMMARY | 2024-09-06 09:24 | XMS_ITS | Clinical Summary ---
Author Organization [facility] Address [address] [place]: Epic Prelude ADT [place] [address] Care Team Providers Care Drafting Layout Worker Name Role Phone Unavailable Primary Care Provider Unavailabl e Social History Tobacco Use Types Packs/Day Years Used Date Smoking Tobacco: Never Assessed Comments Unknown Sex and Gender Information Value Date Recorded Sex Assigned at Not on file Legal Sex Female 5:45 AM CORN BREEDER Gender Identity Not on file Sexual Orientation Not on file Plan of Treatment Health Maintenance Due Date Last Done Comments DTAP/TDAP/TD VACCINES (1 - Tdap) 02/04/1971 COLORECTAL SCREENING 02/04/1997 Colorectal Cancer Screening 02/04/1997 FIT-DNA Q 3 years 02/04/1997 FIT/FOBT Q 1 year 02/04/1997 Flex Sig/CT Colonography Q 5 years 02/04/1997 PNEUMOCOCCAL VACCINE 50+ YEARS (1 of 1 - PCV) 02/05/20 02 ZOSTER VACCINE (1 of 2) 02/04/2002 BREAST CANCER SCREENING 10/22/2009 10/22/2008 OSTEOPOROSIS SCREENING 02/04/2017 INFLUENZA VACCINE (#1) 2023 RSV VACCINE (60+ or ) (1 - 1-dose 75+ series) 02/04/2027 Procedures Procedure Name Priority Date/Time Associated Diagnosis Comments MAMMO SCREEN BILAT W OR WO CAD Routine 10/22/2008 11:13 AM CDT from Last 3 Months or Most Recently Relevant to Health Maintenance Results * MAMMO DIGITAL SCREEN BILAT (10/22/2008 11:13 AM CDT) Anatomical Region Laterality Modality Breast Bilateral Other 10/22/2008 11:1 3 AM CDT Narrative 10/23/2008 4:40 PM CDT [address] [address] Admit Date: 10/22/2008 ROSA HERNANDEZ Sex: F Admit Prov: [id number] BURNS Date: 1950 Primary Care Prov: JANELL PARDO CMRN: [id number] Room: EYALNelly SSN: [id number] IMAGING SERVICES Ordering Prov: JEREMY BRANDT ONSTAFF Accession Number: [id number] Interpretation BILATERAL FULL FIELD DIGITAL SCREENING MAMMOGRAM WITH CAD. Date: 10/22/08 History: Routine Screening. Technique: Full field digital craniocaudal and mediolateral oblique projections of both breasts were obtained. Computer aided detection was performed. Comparison: Comparison is made with previous study from [facility] in [place], [place] dated 06/2006. Breast Parenchymal Composition: Scattered fibroglandular densities. Findings: No suspicious mass, suspicious microcalcifications, or architectural distortion in either breast is identified. Since the prior study, there has been no significant interval change. The computer aided detection system detects no significant abnormality. Overall Assessment: BI-RADS category 1: Negative. Recommendation: Annual mammography is recommended. Assessment BIRADS: 1-Negative Recommendation: Normal interval follow-up Dictated by: AWA LIMA Electronically signed by: AWA LIMA 10/23/2008 16:38 Transcribed: 10/23/2008 09:13 AMK Procedure Note Awa Lima - 10/23/[address] [address] Admit Date: 10/22/2008 ROSA HERNANDEZ Sex: F Admit Prov: ARSLAN GUSTAFSON Date: 1950 Primary Care Prov: JANELL PARDO CMRN: [id number] Room: EYALNelly SSN: [address] [place] [address] IMAGING SERVICES Ordering Prov: JEREMY BRANDT ONSTAMELISSA Interpretation BILATERAL FULL FIELD DIGITAL SCREENING MAMMOGRAM WITH CAD. Date: 10/22/08 History: Routine Screening. Technique: Full field digital craniocaudal and mediolateral oblique projections of both breasts were obtained. Computer aided detectionwas performed. Comparison: Comparison is made with previous study from [facility] [place], [place] dated 06/2006. Breast Parenchymal Composition: Scattered fibroglandular densities. Findings: No suspicious mass, suspicious microcalcifications, or architectural distortion in either breast is identified. Since theprior study, there has been no significant interval change. The computeraided detection system detects no significant abnormality. Overall Assessment: BI-RADS category 1: Negative. Recommendation: Annual mammography is recommended. Assessment BIRADS: 1-Negative Recommendation: Normal interval follow-up Dictated by: AWA LIMA Electronically signed by: AWA LIMA 10/23/2008 16:38 Transcribed: 10/23/2008 09:13 AMK External Provider [facility] MAMMO ORDERABLES Final R esult from Last 3 Months or Most Recently Relevant to Health Maintenance
--- OUTSIDE RECORDS SUMMARY | 2024-09-06 09:24 | XMS_ITS | Encounter Summary ---
Author Organization [facility] Address [address] [place] [address] Care Team Providers Care Marbleizing Machine Tender Name Role Phone Unavailable Primary Care Provider Unavailabl e Encounter Details Date Type Department Care Team (Late st Contact Info) Description 10/22/2008 Outpatient Historical [facility] Arslan Bhatti MD [address] [place] [address] Other Screening Mammogram Social History Tobacco Use Types Packs/Day Years Used Date Smoking Tobacco: Never Assessed Comments Unknown Sex and Gender Information Value Date Recorded Sex Assigned at Not on file Legal Sex Female 5:45 AM NIGHT PATROL INSPECTOR Gender Identity Not on file Sexual Orientation Not on file documented as of this encounter Plan of Treatment Not on file documented as of this encounter Procedures Procedure Name Priority Date/Time Associated Diagnosis Comments MAMMO SCREEN BILAT W OR WO CAD Routine 10/22/2008 11:13 AM CDT documented in this encounter Results * MAMMO DIGITAL SCREEN BILAT (10/22/2008 11:13 AM CDT) Anatomical Region Laterality Modality Breast Bilateral Other 10/22/2008 11:1 3 AM CDT Narrative 10/23/2008 4:40 PM CDT [address] [address] Admit Date: 10/22/2008 ROSA HERNANDEZ Sex: F Admit Prov: ARSLAN GUSTAFSON Date: 1950 Primary Care Prov: JANELL PARDO CMRN: [id number] Room: EYAL-Nelly SSN: [id number] IMAGING SERVICES Ordering Prov: DOCTOR , NOT ONSTAFF Accession Number: [id number] Interpretation BILATERAL FULL FIELD DIGITAL SCREENING MAMMOGRAM WITH CAD. Date: 10/22/08 History: Routine Screening. Technique: Full field digital craniocaudal and mediolateral oblique projections of both breasts were obtained. Computer aided detection was performed. Comparison: Comparison is made with previous study from [facility] in [place], [place] dated 06/2006. Breast Parenchymal Composition: Scattered [...] AMK Procedure Note Awa Lima - 10/23/2008 [facility] [address] [place], [place] [address] Admit Date: 10/22/2008 ROSA HERNANDEZ Sex: F Admit Prov: [id number] ARSLAN BALLESTEROS Date: 1950 Primary Care Prov: JANELL PARDO CMRN: [id number] Room: [facility] SSN: [id number] IMAGING SERVICES Ordering Prov: DOCTOR JEREMY ONSTAFF Interpretation BILATERAL FULL FIELD DIGITAL SCREENING MAMMOGRAM WITH CAD. Date: 10/22/08 History: Routine Screening. Technique: Full field digital craniocaudal and mediolateral oblique projections of both breasts were obtained. Computer aided detectionwas performed. Comparison: Comparison is made with previous study [facility] in [place], [place] dated 06/2006. Breast Parenchymal Composition: Scattered [...] 16:38 Transcribed: 10/23/2008 09:13 AMK External Provider [facility] MAMMO ORDERABLES Final R esult documented in this encounter Visit Diagnoses Diagnosis Other screening mammogram documented in this encounter
== END 2024-09-06 08:59 | disposition home or self-care (01) ==
LOC: ANHIMG 08:58
PROVIDERS: PCP Family Medicine; Visit Provider Family Medicine
DX: M81.0 Age-related osteoporosis without current pathological fracture (principal); M85.851 Other specified disorders of bone density and structure, right thigh; Z78.0 Asymptomatic menopausal state
CPT/HCPCS: 77080

== ENCOUNTER 2024-09-22 07:34 | Outpatient (CLI) | payer MEDICARE, OTHER, SELFPAY ==
--- NOTE | ~2024-09-22 | US_ITS ---
Limited Abdominal Sonogram: Real-time sonographic imaging of the right upper quadrant was performed. Clinical History: Abnormal LFTs Findings: The liver appears mildly heterogeneous, with no evidence of mass lesion or bile duct dilat ation. Main portal vein demonstrates normal direction of flow. The gallbladder is well distended, and appears normal with no evidence of gallstone or wall thickening. The common bile duct measures 4 mm. The visualized pancreas, aorta, and IVC are unremarkable. Nonobstructing 11 mm right renal stone in cidentally noted. Impression: Mildly heterogeneous hepatic echotexture. Correlate for fatty infiltration or other chronic liver dis ease. 11 mm nonobstructing right renal stone. Reviewed, dictated and finalized at location . Impression: Mildly heterogeneous hepatic echotexture. Correlate for fatty infiltration or o ther chronic liver disease. 11 mm nonobstructing right renal stone.
--- OUTSIDE RECORDS SUMMARY | 2024-09-22 07:42 | XMS_ITS | Clinical Summary ---
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 There are [...] compared to prior imaging studies performed at [facility] on 08/06/2020, 09/03/2021 and 10/22/2022. There are scattered areas of fibroglandular density. There is no suspicious abnormality in either breast. Impression: There is no mammographic evidence of malignancy. Annual screening mammography is recommended. OVERALL FINAL ASSESSMENT: BI-RADS CATEGORY 1: Negative. us Self Screening Mammogram IMG MAMMO PROCEDURES Fi nal Result from Last 3 Months or Most Recently Relevant to Health Maintenance Insurance MEDICARE [facility] MEDICARE [facility] [place] [address] MEDICARE [facility] Care Teams Remote Mortgage Underwriter Relationship Specialty Start Date End Date Deepali Rivera MD PCP - General Family Medicine 08/18/23
--- OUTSIDE RECORDS SUMMARY | 2024-09-22 07:42 | XMS_ITS | Encounter Summary ---
Author Organization [facility] Address [address] [place] [address] Care Team Providers Care Service Operator Name Role Phone Artur Nuñez MD Primary Care Provider [phone] Encounter Details Date Type Department Care Team (Late st Contact Info) Description 07/12/2018 Lab Requisition [facility] Care DermPath Lab [address] [facility], [place] [address] Zainab Obando MD [address] [facility] [address] [place] [address] Social History Tobacco Use Types Packs/Day Years Used Date Smoking Tobacco: Never Alcohol Use Standard Drinks/Week Comments No 0 (1 standard drink = 0.6 oz pur e alcohol) Comments Unknown Sex and Gender Information Value Date Recorded Sex Assigned at Not on file Legal Sex Female 6:46 PM PARTS ROOM ASSISTANT Gender Identity Not on file Sexual Orientation Not on file documented as of this encounter Plan of Treatment Not on file documented as of this encounter Procedures Procedure Name Priority Date/Time Associated Diagnosis Comments DERMATOPATH TECHNICAL REPORT Routine 07/11/2018 12:00 AM PARTS ROOM ASSISTANT documented in this encounter Results * DERMATOPATH TECHNICAL REPORT (07/11/2018 12:00 AM PARTS ROOM ASSISTANT) Case Report Dermatopathology Report Case: [id number] Authorizing Provider: Zainab Obando MD Collected: 07/11/2018 12:00 AM Pathologist: Charles Gaona MD Received: 07/12/2018 06:09 AM Specimen: Skin, right back 2:21 PM PARTS ROOM ASSISTANT DERMATOPATHOLOGY LABORATORY Clinical History Blue macule, angioma, foreign body nevus, rule out atypical nevus. 2:21 PM [facility] [[email or web address]] DERMATOPATHOLOGY LABORATORY Gross Description Specimen A: Received is one formalin filled container labeled with the patient's name and designated right back. The specimen consists of a punch measuring 1w1x7eo. Jar 0. [facility] Dermatopathology Laboratory performed the technical component only. 2:21 PM [facility] [[email or web address]] DERMATOPATHOLOGY LABORATORY Embedded Images 2:21 PM [facility] [[email or web address]] DERMATOPATHOLOGY LABORATORY DISCLAIMER An external and internal positive and negative controls are appropriate for the histochemical, immunohistochemical and immunofluorescence stain(s) in this case (if any), except where stated explicitly. The performance characteristics of the stain(s) cited in this report were developed and its performance characteristic determined by the Dermatopathology Laboratory at [facility], directed by Dr. Jennifer Gaona. These tests need not be, and therefore are not, approved by the [place] Food and Drug Administration. The tests are used for clinical purposes. 2:21 PM [facility] [[email or web address]] DERMATOPATHOLOGY LABORATORY Pathology/Cytolog y TISSUE SPECIMEN FROM SKIN / Unknown 07/11/2018 07/12/2018 6:09 AM PARTS ROOM ASSISTANT Zainab Obando MD LAB - PATHOLOGY/CYTOLOGY ORD ERABLES Final Result DERMATOPATHOLOGY LABORATORY [facility] - Department of Dermatology [address] [place] [address] 5th Floor Lab [address] [phone] documented in this encounter Visit Diagnoses Not on filedocumented in this encounter Care Teams Service Operator Relationship Specialty Start Date End Date Artur Nuñez MD [address] [place] [address] PCP - General 01/31/10 documented as of this encounter
--- OUTSIDE RECORDS SUMMARY | 2024-09-22 07:42 | XMS_ITS | Encounter Summary ---
Author Organization [facility] Address 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 Date: 10/22/08 History: Routine Screening. Technique: Full field digital craniocaudal and mediolateral oblique projections of both breasts were obtained. Computer aided detection was performed. Comparison: Comparison is made with previous study from [facility] in [place], [place] dated 06/2006. Breast Parenchymal Composition: Scattered [...] AMK Procedure Note Awa Lima - 10/23/2008 [facility] [address] [place], [place] [address] Admit Date: 10/22/2008 ROSA HERNANDEZ Sex: F Admit Prov: [id number] ARSLAN BALLESTEROS Date: 1950 Primary Care Prov: JANELL PARDO CMRN: [id number] Room: [facility] SSN: [id number] IMAGING SERVICES Ordering Prov: DOCTOR JEREMY ONSTAFF Interpretation BILATERAL FULL FIELD DIGITAL SCREENING MAMMOGRAM WITH CAD. Date: 10/22/08 History: Routine Screening. Technique: Full field digital craniocaudal and mediolateral oblique projections of both breasts were obtained. Computer aided detectionwas performed. Comparison: Comparison is made with previous study from [facility] in [place], [place] dated 06/2006. Breast Parenchymal Composition: Scattered [...] 16:38 Transcribed: 10/23/2008 09:13 AMK External Provider [facility] MAMMO ORDERABLES Final R esult documented in this encounter Visit Diagnoses Diagnosis Other screening mammogram documented in this encounter
--- OUTSIDE RECORDS SUMMARY | 2024-09-22 07:42 | XMS_ITS | Clinical Summary ---
Author Organization [facility] Address [address] [place] [address] Care Team Providers Care Starcher And Tenter Range Feeder Name Role Phone Artur Nuñez MD Primary Care Provider [phone] Source Comments [facility] [employer],non-owned Affiliates and Associated Physician Practices is amultiple site organization consisting of ambulatory clinics and hospital sitesin [place], [place], [place] and [place]. This disclosure is being madepursuant to the Care Everywhere program and may not contain all information available regarding this patient. 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
--- OUTSIDE RECORDS SUMMARY | 2024-09-22 07:42 | XMS_ITS | Clinical Summary ---
Author Organization [facility] Address [address] 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 Date: 10/22/08 History: Routine Screening. Technique: Full field digital craniocaudal and mediolateral oblique projections of both breasts were obtained. Computer aided detection was performed. Comparison: Comparison is made with previous study from [facility] in [place], [place] dated 06/2006. Breast Parenchymal Composition: Scattered [...] AMK Procedure Note Awa Lima - 10/23/[address] [address] Admit Date: 10/22/2008 ROSA HERNANDEZ Sex: F Admit Prov: ARSLAN GUSTAFSON Date: 1950 Primary Care Prov: JANELL PARDO CMRN: [id number] Room: EYALNelly SSN: [address] [place] [address] IMAGING SERVICES Ordering Prov: JEREMY BRANDT ONSTAMELISSA Interpretation BILATERAL FULL FIELD DIGITAL SCREENING MAMMOGRAM WITH CAD. Date: 10/22/08 History: Routine Screening. Technique: Full field digital craniocaudal and mediolateral oblique projections of both breasts were obtained. Computer aided detectionwas performed. Comparison: Comparison is made with previous study from [facility] in [place], [place] dated 06/2006. Breast Parenchymal Composition: Scattered [...] 16:38 Transcribed: 10/23/2008 09:13 AMK External Provider [facility] MAMMO ORDERABLES Final R esult from Last 3 Months or Most Recently Relevant to Health Maintenance
--- OUTSIDE RECORDS SUMMARY | 2024-09-22 07:42 | XMS_ITS | Referral Summary ---
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 There [...] prior imaging studies performed at [facility] on 08/06/2020, 09/03/2021 and 10/22/2022. There [...] Recently Relevant to Health Maintenance Insurance [place]ICARE [place] [facility] [place] Care Teams Php Mysql Developer Relationship Specialty Start Date End Date Deepali Rivera MD PCP - General Family Medicine 08/18/23
--- OUTSIDE RECORDS SUMMARY | 2024-09-22 07:42 | XMS_ITS | Encounter Summary ---
Author Organization [facility] Address [address] [facility] [place] [address] Care Team Providers Care Honing Machine Try Out Setter Name Role Phone Artur Nuñez MD Primary Care Provider [phone] Encounter Details Date Type Department Care Team (Late st Contact Info) Description 12/29/2019 Lab Requisition [facility] DermPath Lab [address] [facility], [place] [address] Zainab Obando MD [address] [facility] [address] [place] [address] Social History Tobacco Use Types Packs/Day Years Used Date Smoking Tobacco: Never Alcohol Use Standard Drinks/Week Comments No 0 (1 standard drink = 0.6 oz pur e alcohol) Comments Unknown Sex and Gender Information Value Date Recorded Sex Assigned at Not on file Legal Sex Female 6:46 PM RESIDENT INTERN Gender Identity Not on file Sexual Orientation Not on file documented as of this encounter Plan of Treatment Not on file documented as of this encounter Procedures Procedure Name Priority Date/Time Associated Diagnosis Comments DERMATOPATHOLOGY Routine 12/28/2019 12:0 0 AM CDT documented in this encounter Results * DERMATOPATHOLOGY (12/28/2019 12:00 AM CDT) Case Report Dermatopathology Report Case: [id number] Authorizing Provider: Zainab Obando MD Collected: 12/28/2019 12:00 AM Ordering Location: [facility] DermPath Lab Received: 12/29/2019 10:53 AM Pathologist: Nubia Lewis MD Specimen: Skin, left breast 0 1:45 PM CDT DERMATOPATHOLOGY LABORATORY Final Diagnosis Specimen A. SKIN, left breast: LYMPHOHISTIOCYTIC DERMAL INFLAMMATION, DERMAL FIBROSIS AND SCLEROSIS (L90.0) (see microscopic description and comment) 0 1:45 PM [facility] DERMATOPATHOLOGY LABORATORY Clinical History R/O bite/foreign body/atypical lymphoid hyperplasia. 0 1:45 PM [facility] DERMATOPATHOLOGY LABORATORY Gross Description Specimen A: Received is one formalin filled container labeled with the patient's name and designated left breast. The specimen consists of a punch measuring [id number], bisected. Jar 0. 0 1:45 PM [facility] DERMATOPATHOLOGY LABORATORY Microscopic Description Specimen A. SKIN, [...] Clinicopathologic correlation is recommended. 0 1:45 PM [facility] DERMATOPATHOLOGY LABORATORY Disclaimer An external and internal positive and negative controls are appropriate for the histochemical, immunohistochemical and immunofluorescence stain(s) in this case (if any), except where stated explicitly. The performance characteristics of the stain(s) cited in this report were developed and its performance characteristic determined by the Dermatopathology Laboratory at [facility], directed by Dr. Jennifer Gaona. These tests need not be, and therefore are not, approved by the [place] Food and Drug Administration. The tests are used for clinical purposes. Billing Codes Specimen Charges Stain Charges 44405 1 [address]7931 1 0 1:45 PM [facility] DERMATOPATHOLOGY LABORATORY Embedded Images 0 1:45 PM CDT DERMATOPATHOLOGY LABORATORY Pathology/Cytolog y TISSUE SPECIMEN FROM SKIN / Unknown 12/28/2019 12/29/2019 10:53 AM CDT Zainab Obando MD LAB - PATHOLOGY/CYTOLOGY ORD ERABLES Final Result DERMATOPATHOLOGY LABORATORY [facility] - Department of Dermatology [facility]/[address] [phone] documented in this encounter Visit Diagnoses Not on filedocumented in this encounter Care Teams Honing Machine Try Out Setter Relationship Specialty Start Date End Date Artur Nuñez MD [address] [place] [address] PCP - General 01/31/10 documented as of this encounter
== END 2024-09-22 07:35 | disposition home or self-care (01) ==
LOC: ANHIMG 07:41
PROVIDERS: PCP Family Medicine; Visit Provider Nurse Practitioner
DX: R93.2 Abnormal findings on diagnostic imaging of liver and biliary tract (principal); R74.8 Abnormal levels of other serum enzymes; N20.0 Calculus of kidney
CPT/HCPCS: 76705

== ENCOUNTER 2025-03-07 | Day surgery (SDC) | payer MEDICARE, OTHER, SELFPAY ==
[2025-02-23 14:12] VITALS: BMI 29.2
[2025-03-07 06:19] VITALS: BP 150/67; PULSE 110; RESP 20; TEMP 36.6; O2SAT 95; BMI 29.5
[2025-03-07] MEDS: LACTATED RINGERS 1,000 ML 150 ML IV CONT (06:34)
--- NOTE | 2025-03-07 06:59 | WPDANESEPPF ---
Anes - Initial Pre Proc Eval Procedure: Operation Date: 03/07/25 07:30 Proposed Procedures p Screening Colonoscopy - Conor Baxter MD Date/Time: 03/07/25 06:59 Surgeon: Conor Baxter MD Pre Op Diagnosis: Personal history of colon polyps, unspecified Patient Data Age: 75 Gender: F Height: 1.52 m Weight: 68.6 kg Last Vital Signs Temp 97.9 F 03/07/25 06:19 Pulse 110 H 03/07/25 06:19 Resp 20 03/07/25 06:19 BP 150/67 H 03/07/25 06:19 Pulse Ox 95 03/07/25 06:19 O2 Del Method Room Air 03/07/25 06:19 Allergies Allergy/AdvReac Type Severity Reaction Status Date / Time No Known Allergies Allergy Verified 03/07/25 06:17 Home Medications ?Medication ?Instructions ?Recorded ?Confirmed ?Type blood-glucose meter (Blood Glucose #1 ea 10/09/19 01/24/25 Rx Monitoring kit) lancets 32 gauge #100 ea 10/09/19 01/24/25 Rx blood sugar diagnostic (Blood #100 ea 07/13/23 01/24/25 Rx Glucose Test strips) metformin 500 mg tablet,extended 500 mg PO BID #180 tabs 12/16/23 03/07/25 Rx release 24 hr sertraline 50 mg tablet See Rx Instructions .Route 02/17/24 03/07/25 Rx .COMPLEX #90 tabs glimepiride 2 mg tablet 2 mg PO QAM #180 tabs 06/05/24 03/07/25 Rx fluticasone propionate 50 1 spray intranasal DAILY #16 grams 07/24/24 03/07/25 Rx mcg/actuation nasal spray,suspension (Flonase Allergy Relief) resmetirom 80 mg tablet (Rezdiffra) 80 mg PO DAILY #30 tabs 12/08/24 02/23/25 Rx ibandronate 150 mg tablet 150 mg PO MONTHLY #6 tabs 12/27/24 02/23/25 Rx Laboratory Tests 03/07/25 06:24 POC Capillary Glucose 143 H mg/dl (65-105) Patient hx anesthesia problems: none Family hx anesthesia problems: none Results Review: All pre-operative results and documents have been reviewed as part of the pre-operative evaluation. [facility] Past Medical History Medical History Diabetes type 2, controlled Thalassemia GERD (gastroesophageal reflux disease) Brain aneurysm history of repair Migraine Surgical History Surgical History History of hysterectomy Family History Family History Mother Family history of lymphoma Family history of malignant neoplasm Father Carcinoma of colon Other Diabetes mellitus Hypertension Social History Social History Smoking status: Never smoker Second hand tobacco smoke exposure: No Alcohol intake: never Alcohol use details: rare Substance use: never Substance use type: does not use Lack of Transportation: No Lack of Food: Never True Current Housing: I Have Housing Concerned About Future Housing: No Difficulty Paying Gas/Electric Bills: No Difficulty Paying for Meds: No Currently Unemployed: No Education: High School Diploma/GED Difficulty w/ Childcare or Family Care: No Living arrangements: with family Gender identity (if verbalized by the patient): Female Sexual Orientation (if Verbalized by the Patient): Straight or Heterosexual Spiritual care concerns: No Agree to blood products: Yes Anes - Eval Final PreProcedure Day of Procedure 03/07/25 06:59 Patient weight: obese Lungs: normal air movement Airway: Mallampati scale class III Neurological: alert and oriented Last oral intake: >/= 8 hours ASA classification: III Emergent: no Anesthetic plan: proceed Anesthesia type and monitoring: general GIVS and standard monitoring Results Review: All pre-operative results and documents have been reviewed as part of the pre-operative evaluation. BMI 30, DM *(fsbs 143), hx cerebral aneursym clipping 1999 w good results. Informed Consent: The patient's anesthetic plan and its attendant risks and benefits were discussed with the patient/family/POA. Questions were solicited and answers provided to the satisfaction of the patient/family/POA.
--- NOTE | 2025-03-07 07:36 | PM.IMHP ---
H&P: HPI History of Present Illness Date/Time: 03/07/25 07:36 Chief Complaint: History of colon polyps Narrative: The patient has a history of colonic polyps, the last colonoscopy was approximately 5 years ago. Review of Systems Review of Systems: All systems reviewed & are unremarkable except as noted in HPI and below PMFSH Past Medical History Medical History Diabetes type 2, controlled Thalassemia GERD (gastroesophageal reflux disease) Brain aneurysm history of repair Migraine Surgical History Surgical History History of hysterectomy Family History Family History Mother Family history of lymphoma Family history of malignant neoplasm Father Carcinoma of colon Other Diabetes mellitus Hypertension Social History Social History Smoking status: Never smoker Second hand tobacco smoke exposure: No Alcohol intake: never Alcohol use details: rare Substance use: never Substance use type: does not use Lack of Transportation: No Lack of Food: Never True Current Housing: I Have Housing Concerned About Future Housing: No Difficulty Paying Gas/Electric Bills: No Difficulty Paying for Meds: No Currently Unemployed: No Education: High School Diploma/GED Difficulty w/ Childcare or Family Care: No Living arrangements: with family Gender identity (if verbalized by the patient): Female Sexual Orientation (if Verbalized by the Patient): Straight or Heterosexual Spiritual care concerns: No Agree to blood products: Yes Meds Home Medications and Allergies Home Medications ?Medication ?Instructions ?Recorded ?Confirmed ?Type blood-glucose meter (Blood Glucose #1 ea 10/09/19 01/24/25 Rx Monitoring kit) lancets 32 gauge #100 ea 10/09/19 01/24/25 Rx blood sugar diagnostic (Blood #100 ea 07/13/23 01/24/25 Rx Glucose Test strips) metformin 500 mg tablet,extended 500 mg PO BID #180 tabs 12/16/23 03/07/25 Rx release 24 hr sertraline 50 mg tablet See Rx Instructions .Route 02/17/24 03/07/25 Rx .COMPLEX #90 tabs glimepiride 2 mg tablet 2 mg PO QAM #180 tabs 06/05/24 03/07/25 Rx fluticasone propionate 50 1 spray intranasal DAILY #16 grams 07/24/24 03/07/25 Rx mcg/actuation nasal spray,suspension (Flonase Allergy Relief) resmetirom 80 mg tablet (Rezdiffra) 80 mg PO DAILY #30 tabs 12/08/24 02/23/25 Rx ibandronate 150 mg tablet 150 mg PO MONTHLY #6 tabs 12/27/24 02/23/25 Rx Allergies Allergy/AdvReac Type Severity Reaction Status Date / Time No Known Allergies Allergy Verified 03/07/25 06:17 Vital Signs Vital Signs - 24 hr 03/07/25 06:19 Temperature 97.9 F Pulse Rate 110 H Respiratory Rate 20 Blood Pressure 150/67 H Pulse Oximetry 95 Oxygen Delivery Room Air Exam Const: General: cooperative and healthy appearing Resp: Effort & Inspection: normal respiratory effort and able to speak in complete sentences Auscultation: clear to auscultation bilaterally Cardio: Rate: regular rate Rhythm: regular rhythm GI: Inspection: normal to inspection GI Palp: No No hepatosplenomegaly present Auscultation: normal bowel sounds Rectal Exam: deferred Skin: General skin exam: normal color Psych: Appearance: grossly normal Mental Status: mental status grossly normal Assessment and Plan Assessment and plan (1) History of adenomatous polyp of colon: Code(s): Z86.0101 - Personal history of adenomatous and serrated colon polyps Status: Acute Assessment and Plan: The patient is deemed a good candidate for the procedure. Consent signed. Will proceed.
[2025-03-07 07:57] VITALS: BP 112/58; PULSE 89; RESP 23; O2SAT 96
[2025-03-07 08:07] VITALS: BP 102/53; PULSE 88; RESP 24; O2SAT 94
[2025-03-07 08:17] VITALS: BP 121/62; PULSE 82; RESP 26; O2SAT 98
== END 2025-03-07 08:25 | disposition home or self-care (01) ==
PROVIDERS: Referring Provider Nurse Practitioner; Visit Provider Internal Medicine Gastroenterology
PROC: 0DJD8ZZ Inspection of Lower Intestinal Tract, Via Natural or Artificial Opening Endoscopic (ICD-10-PCS; CPT 45378; principal; 2025-03-07 07:30)
DX: Z12.11 Encounter for screening for malignant neoplasm of colon (principal); K64.8 Other hemorrhoids; Z86.0100 Personal history of colon polyps, unspecified; Z80.0 Family history of malignant neoplasm of digestive organs; E11.9 Type 2 diabetes mellitus without complications; E66.9 Obesity, unspecified; Z68.29 Body mass index [BMI] 29.0-29.9, adult
CPT/HCPCS: G0105; 82948; J2003; J2704; J7120